=== PATIENT | female | born 1985 | race Caucasian/White ===

== ENCOUNTER 2017-11-02 19:16 | Emergency (ER) | payer OTHER ==
[2017-11-02] MEDS ORDERED: Lactated Ringers 1,000 ML IV ONE (19:20)
--- NOTE | 2017-11-02 19:22 | EDM.PDOC ---
ED HPI GENERAL MEDICAL PROBLEM - General Chief Complaint: Abdominal Pain Stated Complaint: STOMACH PAIN/NAUSEA/DIZZY Time Seen by Provider: 11/02/17 19:21 Source of Information: Reports: Patient - History of Present Illness INITIAL COMMENTS - FREE TEXT/NARRATIVE: HISTORY AND PHYSICAL: History of present illness: [Patient presents with right lower quadrant pain and anorexia and nausea since 8 AM this morning rates pain 8 out of 10 nonradiating no fever chills sweats Denies chronic illness or disease History of tubal ligation ] Review of systems: As per history of present illness and below otherwise all systems reviewed and negative. Past medical history: As per history of present illness and as reviewed below otherwise noncontributory. Surgical history: As per history of present illness and as reviewed below otherwise noncontributory. Social history: No reported history of drug or alcohol abuse. Family history: As per history of present illness and as reviewed below otherwise noncontributory. Physical exam: HEENT: Atraumatic, normocephalic, pupils reactive, negative for conjunctival pallor or scleral icterus, mucous membranes moist, throat clear, neck supple, nontender, trachea midline. Lungs: Clear to auscultation, breath sounds equal bilaterally, chest nontender. Heart: S1S2, regular, negative for clicks, rubs, or JVD. Abdomen: Soft, nondistended, tender with guarding in the right lower quadrant no rebound Negative for masses or hepatosplenomegaly. Negative for costovertebral tenderness. Pelvis: Stable nontender. Genitourinary: Deferred. Rectal: Deferred. Extremities: Atraumatic, negative for cords or calf pain. Neurovascular unremarkable. Neuro: Awake, alert, oriented. Cranial nerves II through XII unremarkable. Cerebellum unremarkable. Motor and sensory unremarkable throughout. Exam nonfocal. Diagnostics: [CBC CMP amylase lipase troponin UA HCG] Therapeutics: [LR 1 L bolus Toradol 30 mg IV Zofran 8 mg IV 1 g Rocephin IM morphine Zosyn 3.375 g IV Patient transferred to [facility], I did speak with Dr. Shah [facility] to further evaluate mass lesion/treat ] Impression: Appendicitis 7.4 x 7.4 cm mass austere aspect of heart and diaphragm Intermediate splenic lesions noted by radiology 1.6 cm lytic lesion involving left iliac bone superiorly [Abdominal pain] Definitive disposition and diagnosis as appropriate pending reevaluation and review of above. abdominal Pain Score (Numeric/FACES): 10 - Related Data Allergies Allergy/AdvReac Type Severity Reaction Status Date / Time No Known Allergies Allergy Verified 11/02/17 19:28 Home Meds: Home Meds . [No Known Home Meds] 11/02/17 [History] ED ROS GENERAL - Review of Systems Review Of Systems: ROS reveals no pertinent complaints other than HPI. ED EXAM, GENERAL - Physical Exam Exam: See Below Course - Vital Signs Last Recorded V/S: Last Vital Signs Temp 97.8 F 11/02/17 19:23 Pulse 77 11/02/17 19:23 Resp 18 11/02/17 19:23 BP 145/83 H 11/02/17 19:23 Pulse Ox 97 11/02/17 19:23 - Orders/Labs/Meds Orders: Active Orders 24 hr Category Date Time Status Abdomen Pelvis w Cont [CT] Stat Exams 11/02/17 20:06 Taken Piperacillin/Tazobactam [Piperacil-Tazobact] 3.375 gm Med 11/02/17 21:30 Ordered Sodium Chloride 0.9% [Normal Saline] 50 ml IV ONETIME cefTRIAXone [Rocephin in Dextrose,Iso-Osm 1 GM/50 ML] 1 Med 11/02/17 21:19 Ordered gm Premix Bag 1 bag IV ONETIME Medication Orders Ceftriaxone Sodium/Dextrose 1 (gm/ Premix) 50 mls @ 100 mls/hr IV ONETIME ONE Stop: 11/02/17 21:48 Piperacillin Sod/Tazobactam (Sod 3.375 gm/ Sodium Chloride) 50 mls @ 100 mls/ hr IV ONETIME ONE Stop: 11/02/17 21:59 Labs: Laboratory Tests 11/02/17 11/02/17 11/02/17 Range/Units 19:25 19:25 19:32 WBC 22.78 H (4.0-11.0) K/uL RBC 4.62 (4.30-5.90) M/uL Hgb 12.7 (12.0-16.0) g/dL Hct 37.4 (36.0-46.0) % MCV 81.0 (80.0-98.0) fL MCH 27.5 (27.0-32.0) pg MCHC 34.0 (31.0-37.0) g/dL RDW Std Deviation 41.6 (28.0-62.0) fl RDW Coeff of Shabbir 14 (11.0-15.0) % Plt Count 208 (150-400) K/uL MPV 11.00 (7.40-12.00) fL Neut % (Auto) 87.6 H (48.0-80.0) % Lymph % (Auto) 6.3 L (16.0-40.0) % [place] % (Auto) 6.0 (0.0-15.0) % Eos % (Auto) 0.0 (0.0-7.0) % Baso % (Auto) 0.1 (0.0-1.5) % Neut # (Auto) 20.0 H (1.4-5.7) K/uL Lymph # (Auto) 1.4 (0.6-2.4) K/uL [place] # (Auto) 1.4 H (0.0-0.8) K/uL Eos # (Auto) 0.0 (0.0-0.7) K/uL Baso # (Auto) 0.0 (0.0-0.1) K/uL Nucleated RBC % 0.0 /100WBC Nucleated RBCs # 0 K/uL Sodium (136-145) mmol/L Potassium (3.5-5.1) mmol/L Chloride (98-107) mmol/L Carbon Dioxide (21.0-32.0) mmol/L BUN (7.0-18.0) mg/dL Creatinine (0.6-1.0) mg/dL Est Cr Clr Drug Dosing mL/min Estimated GFR (MDRD) ml/min Glucose (74-106) mg/dL Calcium (8.5-10.1) mg/dL Total Bilirubin (0.2-1.0) mg/dL AST (15-37) IU/L ALT (14-63) IU/L Alkaline Phosphatase (46-116) U/L Troponin I (0.000-0.056) ng/mL Total Protein (6.4-8.2) g/dL Albumin (3.4-5.0) g/dL Globulin (2.0-3.5) g/dL Albumin/Globulin Ratio (1.3-2.8) Amylase (25-115) U/L Lipase (73-393) U/L Urine Color YELLOW Urine Appearance CLEAR Urine pH 5.5 (5.0-8.0) Ur Specific [place] <= 1.005 (1.001-1.035) Urine Protein NEGATIVE (NEGATIVE) mg/dL Urine Glucose (UA) NEGATIVE (NEGATIVE) mg/dL Urine Ketones NEGATIVE (NEGATIVE) mg/dL Urine Occult Blood TRACE-LYSED (NEGATIVE) Urine Nitrite NEGATIVE (NEGATIVE) Urine Bilirubin NEGATIVE (NEGATIVE) Urine Urobilinogen 0.2 (<2.0) EU/dL Ur Leukocyte Esterase NEGATIVE (NEGATIVE) Urine RBC 0-1 (0-2/HPF) Urine WBC 0-2 (0-5/HPF) Ur Epithelial Cells RARE (NONE-FEW) Urine Bacteria RARE (NEGATIVE) Urine HCG, Qual NEGATIVE (NEGATIVE) 11/02/17 Range/Units 19:32 WBC (4.0-11.0) K/uL RBC (4.30-5.90) M/uL Hgb (12.0-16.0) g/dL Hct (36.0-46.0) % MCV (80.0-98.0) fL MCH (27.0-32.0) pg MCHC (31.0-37.0) g/dL RDW Std Deviation (28.0-62.0) fl RDW Coeff of Shabbir (11.0-15.0) % Plt Count (150-400) K/uL MPV (7.40-12.00) fL Neut % (Auto) (48.0-80.0) % Lymph % (Auto) (16.0-40.0) % [place] % (Auto) (0.0-15.0) % Eos % (Auto) (0.0-7.0) % Baso % (Auto) (0.0-1.5) % Neut # (Auto) (1.4-5.7) K/uL Lymph # (Auto) (0.6-2.4) K/uL [place] # (Auto) (0.0-0.8) K/uL Eos # (Auto) (0.0-0.7) K/uL Baso # (Auto) (0.0-0.1) K/uL Nucleated RBC % /100WBC Nucleated RBCs # K/uL Sodium 132 L (136-145) mmol/L Potassium 3.6 (3.5-5.1) mmol/L Chloride 100 (98-107) mmol/L Carbon Dioxide 22.1 (21.0-32.0) mmol/L BUN 9 (7.0-18.0) mg/dL Creatinine 0.8 (0.6-1.0) mg/dL Est Cr Clr Drug Dosing 98.18 mL/min Estimated GFR (MDRD) > 60.0 ml/min Glucose 106 (74-106) mg/dL Calcium 8.6 (8.5-10.1) mg/dL Total Bilirubin 1.8 H (0.2-1.0) mg/dL AST 13 L (15-37) IU/L ALT 15 (14-63) IU/L Alkaline Phosphatase 65 (46-116) U/L Troponin I < 0.050 (0.000-0.056) ng/mL Total Protein 7.5 (6.4-8.2) g/dL Albumin 3.7 (3.4-5.0) g/dL Globulin 3.8 H (2.0-3.5) g/dL Albumin/Globulin Ratio 1.0 L (1.3-2.8) Amylase 33 (25-115) U/L Lipase 53 L (73-393) U/L Urine Color Urine Appearance Urine pH (5.0-8.0) Ur Specific [place] (1.001-1.035) Urine Protein (NEGATIVE) mg/dL Urine Glucose (UA) (NEGATIVE) mg/dL Urine Ketones (NEGATIVE) mg/dL Urine Occult Blood (NEGATIVE) Urine Nitrite (NEGATIVE) Urine Bilirubin (NEGATIVE) Urine Urobilinogen (<2.0) EU/dL Ur Leukocyte Esterase (NEGATIVE) Urine RBC (0-2/HPF) Urine WBC (0-5/HPF) Ur Epithelial Cells (NONE-FEW) Urine Bacteria (NEGATIVE) Urine HCG, Qual (NEGATIVE) Meds: Medications Generic Name Dose Route Start Last Admin Trade Name Freq PRN Reason Stop Dose Admin Ceftriaxone Sodium/Dextrose 1 50 mls @ 100 mls/hr 11/02/17 21:19 gm/ Premix IV 11/02/17 21:48 ONETIME ONE Piperacillin Sod/Tazobactam 50 mls @ 100 mls/hr 11/02/17 21:30 Sod 3.375 gm/ Sodium Chloride IV 11/02/17 21:59 ONETIME ONE Discontinued Medications Generic Name Dose Route Start Last Admin Trade Name Alexis PRN Reason Stop Dose Admin Hydromorphone HCl 0.5 mg 11/02/17 20:15 Dilaudid IVPUSH ONETIME PRN Abdominal Pain Lactated Ringer's 1,000 mls @ 999 mls/hr 11/02/17 19:20 11/02/17 19:37 Ringers, Lactated IV 11/02/17 20:20 999 mls/hr .BOLUS ONE Administration Ketorolac Tromethamine 30 mg 11/02/17 19:30 11/02/17 19:43 Toradol IVPUSH 11/02/17 19:31 30 mg ONETIME ONE Administration Morphine Sulfate 2 mg 11/02/17 21:12 Morphine IVPUSH 11/02/17 21:13 ONETIME ONE Ondansetron HCl 8 mg 11/02/17 19:31 11/02/17 19:43 Zofran IVPUSH 11/02/17 19:32 8 mg ONETIME ONE Administration Departure - Departure Time of Disposition: 21:38 Disposition: DC/Tfer to Other 70 Condition: Poor Clinical Impression: Appendicitis, Mass in chest - Discharge Information Forms: ED Department Discharge - My Orders Last 24 Hours: My Active Orders 11/02/17 20:06 Abdomen Pelvis w Cont [CT] Stat 11/02/17 21:19 cefTRIAXone [Rocephin in Dextrose,Iso-Osm 1 GM/50 ML] 1 gm Premix Bag 1 bag IV ONETIME 11/02/17 21:30 Piperacillin/Tazobactam [Piperacil-Tazobact] 3.375 gm Sodium Chloride 0.9% [ Normal Saline] 50 ml IV ONETIME - Assessment/Plan Last 24 Hours: My Active Orders 11/02/17 20:06 Abdomen Pelvis w Cont [CT] Stat 11/02/17 21:19 cefTRIAXone [Rocephin in Dextrose,Iso-Osm 1 GM/50 ML] 1 gm Premix Bag 1 bag IV ONETIME 11/02/17 21:30 Piperacillin/Tazobactam [Piperacil-Tazobact] 3.375 gm Sodium Chloride 0.9% [ Normal Saline] 50 ml IV ONETIME
[2017-11-02] MEDS ORDERED: Ketorolac 30 MG/ML SDV IVPUSH ONE (19:30)
[2017-11-02] MEDS ORDERED: Ondansetron 4 MG/2 ML SDV IVPUSH ONE (19:31)
[2017-11-02 20:05] LABS: CHLORIDE,CL 100 mmol/L (98-107); SODIUM,NA 132 mmol/L (136-145)
[2017-11-02] MEDS ORDERED: HYDROmorphone 2 MG/ML SDV IVPUSH PRN (20:15)
[2017-11-02] MEDS ORDERED: Morphine 2 MG/ML Syringe IVPUSH ONE (21:12)
[2017-11-02] MEDS ORDERED: cefTRIAXone 1 GM in Premix Bag 1 BAG IV ONE (21:19)
[2017-11-02] MEDS ORDERED: Piperacillin/Tazobactam 3.375 GM in Sodium Chloride 0.9% 50 ML IV ONE (21:30)
[2017-11-02] MEDS ORDERED: diphenhydrAMINE 50 MG/ML SDV IVPUSH ONE (22:12)
[2017-11-02] MEDS ORDERED: diphenhydrAMINE 50 MG/ML SDV ONE (22:13)
--- NOTE | 2017-11-03 17:09 | CT ---
EXAM DATE: 11/02/17 PATIENT'S AGE: 32 Patient: JAZMIN ADAIR Facility: [place], [place] Site . Site : 1985 Study: CT Abdomen/Pelvis [id number]/18/2018 8:53:47 PM Ordering Physician: Brandi Sequeira Final Report: HISTORY: Flank pain. TECHNIQUE: Intravenous contrast enhanced CT of the abdomen and pelvis. 100 mL of Isovue- 370 intravenous contrast administered. COMPARISON: No prior. FINDINGS: There is no focal liver parenchymal abnormality. No biliary ductal dilatation. Gallbladder does not appear overly distended. There are multiple low-density indeterminate splenic lesions. The adrenal gland on the right is normal. There is mild thickening of the posterior limb of the left adrenal gland. No focal pancreatic abnormality or acute peripancreatic inflammatory change. Symmetric nephrograms. No hydronephrosis. Sub cm low-density lesion at the inferior pole left kidney is too small to characterize though may represent a small cyst. There is no ureteral calculus. Urinary bladder is not optimally evaluated by CT but appears grossly unremarkable. - The appendix is dilated to approximately 10 mm. There is haziness of the periappendiceal fat along with a trace amount of periappendiceal fluid. These findings are suspicious for acute appendicitis. There is no well-defined periappendiceal fluid collection. No diverticulitis. - Small amount of pelvic free fluid within the cul-de-sac. Probable small dominant follicle or cyst right ovary. - No abdominal aortic aneurysm. The mesenteric arterial and renal arterial vasculature appears patent. Small nonenlarged by imaging criteria retroperitoneal lymph nodes. 1.6 cm lytic lesion involving the left iliac bone superiorly on image #94 of series 201. No other bony lucent lesions. - There is an approximately 7.4 x 7.4 cm mass abutting the posterior aspect of the heart. This is seen on image #17 of series 201. Differential considerations include lymphoma, metastatic disease or primary soft tissue tumor. There are prominent lymph nodes within the fat adjacent to the right heart. Minor atelectasis within the lung bases. IMPRESSION: 1. Dilated appendix with surrounding inflammatory changes compatible with acute appendicitis. No free air or well-defined fluid collection. 2. Soft tissue mass measuring 7.4 x 7.4 cm in size abutting the posterior aspect of the heart and diaphragm. Differential considerations include lymphoma , metastatic disease versus primary soft tissue neoplasm. There are also prominent lymph nodes in the fat adjacent to the right heart. 3. Indeterminate splenic lesions for which lymphoma or metastases may be considered. 4. 1.6 cm lytic lesion involving the left iliac bone superiorly. No other bony lucent lesions. 5. Findings were discussed with Dr. Paz on 11/02/2017 at 21:09 hours. Dictated by Scott Lopez MD @ 11/02/2017 9:13:48 PM Dictated by: Scott Lopez MD @ 11/02/2017 21:13:58 (Electronic Signature) Report Signed by Proxy. CARISSA
== END 2017-11-02 22:31 | disposition other institution (70) ==
LOC: MW.ED 19:16
DX: K37 Unspecified appendicitis (principal); R22.2 Localized swelling, mass and lump, trunk
CPT/HCPCS: 36415; 74177; 80053; 81001; 81025; 82150; 83690; 84484; 85025; 96361; 96365; 96367; 96375; 99285; J0696; J1200; J1885; J2270; J2405; J2543; J7050; J7120; 99284

== ENCOUNTER 2018-02-26 11:48 | Emergency (ER) | payer OTHER ==
--- NOTE | 2018-02-26 12:22 | EDM.PDOC ---
<Luis Harrison E - Last Filed: 02/26/18 13:46> ED HPI GENERAL MEDICAL PROBLEM - General Chief Complaint: Abdominal Pain Stated Complaint: ABD PAIN Time Seen by Provider: 02/26/18 12:20 Source of Information: Reports: Patient History Limitations: Reports: No Limitations - History of Present Illness INITIAL COMMENTS - FREE TEXT/NARRATIVE: HISTORY AND PHYSICAL: History of present illness: Patient is a 32-year-old female who presents to the emergency room today with complaints of right upper quadrant pain and nausea. She states that depending on the time it does radiate into her posterior mid back. She is concerned that this is her gallbladder. Reports that she has had similar pain on and off over the past several years but has never been evaluated for this. She denies any fever, chills, chest pain, shortness of breath or cough. Denies any vomiting, diarrhea, constipation or dysuria. Review of systems: As per history of present illness and below otherwise all systems reviewed and negative. Past medical history: As per history of present illness and as reviewed below otherwise noncontributory. Surgical history: As per history of present illness and as reviewed below otherwise noncontributory. Social history: No reported history of drug or alcohol abuse. Family history: As per history of present illness and as reviewed below otherwise noncontributory. Physical exam: General: Well-developed and well-nourished 32-year-old female. Alert and oriented. Nontoxic appearing and in no acute distress. HEENT: Atraumatic, normocephalic, pupils equal and reactive bilaterally, negative for conjunctival pallor or scleral icterus, mucous membranes moist, throat clear, neck supple, nontender, trachea midline. No drooling or trismus noted. No meningeal signs Lungs: Clear to auscultation, breath sounds equal bilaterally, chest nontender. Heart: S1S2, regular rate and rhythm without overt murmur Abdomen: Soft, nondistended, nontender. Negative for masses or hepatosplenomegaly. Negative for costovertebral tenderness. Pelvis: Stable nontender. Genitourinary: Deferred. Rectal: Deferred. Skin: Intact, warm, dry. No lesions or rashes noted. Extremities: Atraumatic, negative for cords or calf pain. Neurovascular unremarkable. Neuro: Awake, alert, oriented. Cranial nerves II through XII unremarkable. Cerebellum unremarkable. Motor and sensory unremarkable throughout. Exam nonfocal. Notes: 11/02/17: A she did have a CT of the abdomen and pelvis with contrast which showed a dilated appendix with surrounding inflammatory changes. There was a soft tissue mass measuring 7.47.4 cm in size posterior aspect of the heart and diaphragm. She was transferred to [facility] [place] in [place]. These masses were biopsied and found to be benign. Has not had any problems since that time. Offered IV fluids and nausea medication; declined. Lab work is unremarkable. Ultrasound shows no evidence Diagnostics: CBC, CMP, Amylase, Lipase, UA, Limited Abdominal Ultrasound Therapeutics: Declined Impression: Abdominal Pain Plan: 1. [place] low-fat diet for the next 24-72 hours. Increase your oral fluids to prevent dehydration. 2. You may use the tramadol and Zofran as prescribed. Tramadol may cause drowsiness so do not take it will driving her needing to be functioning outside of the house. 3. Please follow-up with your primary care provider or the general surgeon in the next week. Return to the ED as needed and as discussed. Definitive disposition and diagnosis as appropriate pending reevaluation and review of above. Right Upper Abdominal Pain Score (Numeric/FACES): 5 - Related Data Allergies Allergy/AdvReac Type Severity Reaction Status Date / Time No Known Allergies Allergy Verified 02/26/18 12:18 Home Meds: Home Meds . [No Known Home Meds] 11/02/17 [History] Past Medical History - Past Surgical History Female Surgical History: Reports: Section Social & Family History - Family History Family Medical History: Noncontributory - Caffeine Use Caffeine Use: Reports: Coffee, Energy Drinks, Soda, Tea Course - Vital Signs Last Recorded V/S: Last Vital Signs Temp 36.8 C 02/26/18 12:18 Pulse 83 02/26/18 13:55 Resp 18 02/26/18 13:55 BP 133/87 02/26/18 13:55 Pulse Ox 99 02/26/18 13:55 - Orders/Labs/Meds Orders: Active Orders 24 hr Category Date Time Status HCG QUALITATIVE,URINE [URCHEM] Stat Lab 02/26/18 11:52 Ordered UA W/MICROSCOPIC [URIN] Stat Lab 02/26/18 11:52 Ordered Labs: Laboratory Tests 02/26/18 02/26/18 02/26/18 Range/Units 11:52 11:52 12:12 WBC 8.18 (4.0-11.0) K/uL RBC 4.81 (4.30-5.90) M/uL Hgb 12.4 (12.0-16.0) g/dL Hct 37.9 (36.0-46.0) % MCV 78.8 L (80.0-98.0) fL MCH 25.8 L (27.0-32.0) pg MCHC 32.7 (31.0-37.0) g/dL RDW Std Deviation 42.5 (28.0-62.0) fl RDW Coeff of Shabbir 15 (11.0-15.0) % Plt Count 203 (150-400) K/uL MPV 11.50 (7.40-12.00) fL Neut % (Auto) 67.9 (48.0-80.0) % Lymph % (Auto) 22.7 (16.0-40.0) % [place] % (Auto) 5.0 (0.0-15.0) % Eos % (Auto) 4.2 (0.0-7.0) % Baso % (Auto) 0.2 (0.0-1.5) % Neut # (Auto) 5.6 (1.4-5.7) K/uL Lymph # (Auto) 1.9 (0.6-2.4) K/uL [place] # (Auto) 0.4 (0.0-0.8) K/uL Eos # (Auto) 0.3 (0.0-0.7) K/uL Baso # (Auto) 0.0 (0.0-0.1) K/uL Nucleated RBC % 0.0 /100WBC Nucleated RBCs # 0 K/uL Sodium (136-145) mmol/L Potassium (3.5-5.1) mmol/L Chloride (98-107) mmol/L Carbon Dioxide (21.0-32.0) mmol/L BUN (7.0-18.0) mg/dL Creatinine (0.6-1.0) mg/dL Est Cr Clr Drug Dosing mL/min Estimated GFR (MDRD) ml/min Glucose (74-106) mg/dL Calcium (8.5-10.1) mg/dL Total Bilirubin (0.2-1.0) mg/dL AST (15-37) IU/L ALT (14-63) IU/L Alkaline Phosphatase (46-116) U/L Total Protein (6.4-8.2) g/dL Albumin (3.4-5.0) g/dL Globulin (2.0-3.5) g/dL Albumin/Globulin Ratio (1.3-2.8) Amylase (25-115) U/L Lipase (73-393) U/L Urine Color YELLOW Urine Appearance CLEAR Urine pH 6.0 (5.0-8.0) Ur Specific [place] 1.020 (1.001-1.035) Urine Protein NEGATIVE (NEGATIVE) mg/dL Urine Glucose (UA) NEGATIVE (NEGATIVE) mg/dL Urine Ketones NEGATIVE (NEGATIVE) mg/dL Urine Occult Blood TRACE-INTACT (NEGATIVE) Urine Nitrite NEGATIVE (NEGATIVE) Urine Bilirubin NEGATIVE (NEGATIVE) Urine Urobilinogen 0.2 (<2.0) EU/dL Ur Leukocyte Esterase NEGATIVE (NEGATIVE) Urine RBC 0-1 (0-2/HPF) Urine WBC 0-1 (0-5/HPF) Ur Epithelial Cells RARE (NONE-FEW) Urine Bacteria RARE (NEGATIVE) Urine HCG, Qual NEGATIVE (NEGATIVE) 02/26/18 02/26/18 Range/Units 12:12 12:12 WBC (4.0-11.0) K/uL RBC (4.30-5.90) M/uL Hgb (12.0-16.0) g/dL Hct (36.0-46.0) % MCV (80.0-98.0) fL MCH (27.0-32.0) pg MCHC (31.0-37.0) g/dL RDW Std Deviation (28.0-62.0) fl RDW Coeff of Shabbir (11.0-15.0) % Plt Count (150-400) K/uL MPV (7.40-12.00) fL Neut % (Auto) (48.0-80.0) % Lymph % (Auto) (16.0-40.0) % [place] % (Auto) (0.0-15.0) % Eos % (Auto) (0.0-7.0) % Baso % (Auto) (0.0-1.5) % Neut # (Auto) (1.4-5.7) K/uL Lymph # (Auto) (0.6-2.4) K/uL [place] # (Auto) (0.0-0.8) K/uL Eos # (Auto) (0.0-0.7) K/uL Baso # (Auto) (0.0-0.1) K/uL Nucleated RBC % /100WBC Nucleated RBCs # K/uL Sodium 138 (136-145) mmol/L Potassium 3.6 (3.5-5.1) mmol/L Chloride 102 (98-107) mmol/L Carbon Dioxide 28.4 (21.0-32.0) mmol/L BUN 13 (7.0-18.0) mg/dL Creatinine 0.9 (0.6-1.0) mg/dL Est Cr Clr Drug Dosing 84.01 mL/min Estimated GFR (MDRD) > 60.0 ml/min Glucose 110 H (74-106) mg/dL Calcium 8.9 (8.5-10.1) mg/dL Total Bilirubin 0.6 (0.2-1.0) mg/dL AST 14 L (15-37) IU/L ALT 19 (14-63) IU/L Alkaline Phosphatase 78 (46-116) U/L Total Protein 7.5 (6.4-8.2) g/dL Albumin 3.5 (3.4-5.0) g/dL Globulin 4.0 H (2.0-3.5) g/dL Albumin/Globulin Ratio 0.9 L (1.3-2.8) Amylase 38 (25-115) U/L Lipase 101 (73-393) U/L Urine Color Urine Appearance Urine pH (5.0-8.0) Ur Specific [place] (1.001-1.035) Urine Protein (NEGATIVE) mg/dL Urine Glucose (UA) (NEGATIVE) mg/dL Urine Ketones (NEGATIVE) mg/dL Urine Occult Blood (NEGATIVE) Urine Nitrite (NEGATIVE) Urine Bilirubin (NEGATIVE) Urine Urobilinogen (<2.0) EU/dL Ur Leukocyte Esterase (NEGATIVE) Urine RBC (0-2/HPF) Urine WBC (0-5/HPF) Ur Epithelial Cells (NONE-FEW) Urine Bacteria (NEGATIVE) Urine HCG, Qual (NEGATIVE) Departure - Departure Time of Disposition: 13:45 Disposition: Home, Self-Care 01 Clinical Impression: Abdominal pain Qualifiers: Abdominal location: right upper quadrant Qualified Code(s): R10.11 - Right upper quadrant pain - Discharge Information Instructions: Abdominal Pain, Adult, [id number] Referrals: PCP,None [Primary Care Provider] - Forms: ED Department Discharge Additional Instructions: The following information is given to patients seen in the emergency department who are being discharged to home. This information is to outline your options for follow-up care. We provide all patients seen in our emergency department with a follow-up referral. The need for follow-up, as well as the timing and circumstances, are variable depending upon the specifics of your emergency department visit. If you don't have a primary care physician on staff, we will provide you with a referral. We always advise you to contact your personal physician following an emergency department visit to inform them of the circumstance of the visit and for follow-up with them and/or the need for any referrals to a consulting specialist. The emergency department will also refer you to a specialist when appropriate. This referral assures that you have the opportunity for follow-up care with a specialist. All of these measure are taken in an effort to provide you with optimal care, which includes your follow-up. Under all circumstances we always encourage you to contact your private physician who remains a resource for coordinating your care. When calling for follow-up care, please make the office aware that this follow-up is from your recent emergency room visit. If for any reason you are refused follow-up, please contact the [facility] Emergency Department at and asked to speak to the emergency department charge nurse. [facility] [address] [place] [id number] [facility] Specialty Care - General Surgery Professional Building [address] [place] [address], [address] [place] [address] 1. [place] low-fat diet for the next 24-72 hours. Increase your oral fluids to prevent dehydration. 2. You may use the tramadol and Zofran as prescribed. Tramadol may cause drowsiness so do not take it will driving her needing to be functioning outside of the house. 3. Please follow-up with your primary care provider or the general surgeon in the next week. Return to the ED as needed and as discussed. <Sduha Rocha - Last Filed: 02/26/18 15:12> ED ROS GENERAL - Review of Systems Review Of Systems: ROS reveals no pertinent complaints other than HPI. ED EXAM, GI/ABD - Physical Exam Exam: See Below (See dictation)
[2018-02-26 12:56] LABS: CHLORIDE,CL 102 mmol/L (98-107); SODIUM,NA 138 mmol/L (136-145)
--- NOTE | 2018-02-26 13:06 | US ---
EXAMINATION: Right upper quadrant ultrasound HISTORY: Pain COMPARISON: CT dated 11/02/2017 TECHNIQUE: Grayscale, color Doppler, and spectral Doppler imaging obtained. FINDINGS: The visualized pancreas appears normal. The liver is normal in contour and echotexture with out a focal hepatic mass. The liver size is borderline and 17 cm. The gallbladder is contracted, othe rwise unremarkable. Common bile duct measures 3 mm. The right kidney measures 11.3 cm [id number] wi thout evidence of hydronephrosis. Sonographic Cerda sign is negative. IMPRESSION: Unremarkable right upper quadrant ultrasound.
== END 2018-02-26 13:55 | disposition home or self-care (01) ==
LOC: MW.ED 11:48
DX: R10.11 Right upper quadrant pain (principal)
CPT/HCPCS: 36415; 76705; 76705-26; 80053; 81001; 81025; 82150; 83690; 85025; 99283; 99284-25

== ENCOUNTER 2019-10-12 06:45 | Day surgery (SDC) | payer BC, OTHER ==
[2019-10-12] MEDS ORDERED: Lactated Ringers 1,000 ML IV SCH ×2 (07:00→07:30)
[2019-10-12] MEDS ORDERED: Lidocaine 2% 5 ML SDV ONE (07:02)
[2019-10-12] MEDS ORDERED: Midazolam 1 MG/ML 2 ML SDV ONE (07:02)
[2019-10-12] MEDS ORDERED: Ondansetron 4 MG/2 ML SDV ONE (07:02)
[2019-10-12] MEDS ORDERED: Propofol 200 MG/20 ML SDV ONE (07:02)
[2019-10-12] MEDS ORDERED: fentaNYL 250 MCG/5 ML SDV ONE (07:02)
[2019-10-12] MEDS ORDERED: Sodium Chloride 0.9% 10 ML Syringe FLUSH PRN (07:30)
[2019-10-12] MEDS ORDERED: Sodium Chloride 0.9% 10 ML SDV IV PRN (07:30)
[2019-10-12] MEDS ORDERED: Sodium Chloride 0.9% 2.5 ML Syringe FLUSH PRN (07:30)
[2019-10-12] MEDS ORDERED: Naloxone 0.4 MG/ML Syringe IVPUSH PRN (07:31)
[2019-10-12] MEDS ORDERED: EPINEPHrine 1:10,000 1 MG/10 ML Syringe IVPUSH PRN (07:31)
[2019-10-12] MEDS ORDERED: 50% Dextrose in Water 50 ML Syringe IVPUSH PRN (07:31)
[2019-10-12] MEDS ORDERED: Albuterol 0.083% 2.5 MG/3 ML Neb Soln NEB PRN (07:31)
[2019-10-12] MEDS ORDERED: Atropine 0.1 MG/ML 10 ML Syringe IVPUSH PRN ×2 (07:31)
--- NOTE | 2019-10-12 07:33 | PCM.PREANE ---
Preanesthetic Assessment - Anesthesia/Transfusion/Family Hx Family History of Anesthesia Reaction: No Transfusion History: No Prior Transfusion(s) - Review of Systems General: No Symptoms Pulmonary: No Symptoms Cardiovascular: No Symptoms Gastrointestinal: No Symptoms Neurological: No Symptoms Other: Reports: None - Physical Assessment NPO Status Date: 10/11/19 NPO Status Time: 22:00 Vital Signs: Last Vital Signs Temp 97.5 F 10/12/19 07:00 Pulse 77 10/12/19 07:00 Resp 16 10/12/19 07:00 BP 121/77 10/12/19 07:00 Pulse Ox 97 10/12/19 07:00 Height: 5 ft 6 in Weight: 89.811 kg ASA Class: 1 Mental Status: Alert & Oriented x3 Airway Class: Mallampati = 2 Dentition: Reports: Normal Dentition ROM/Head Extension: Full Lungs: Clear to Auscultation, Normal Respiratory Effort Cardiovascular: Regular Rate, Regular Rhythm - Lab Values: Laboratory Last Values WBC 8.34 K/uL (4.0-11.0) 10/12/19 07:10 RBC 4.78 M/uL (4.30-5.90) 10/12/19 07:10 Hgb 12.1 g/dL (12.0-16.0) 10/12/19 07:10 Hct 38.7 % (36.0-46.0) 10/12/19 07:10 MCV 81.0 fL (80.0-98.0) 10/12/19 07:10 MCH 25.3 pg (27.0-32.0) L 10/12/19 07:10 MCHC 31.3 g/dL (31.0-37.0) 10/12/19 07:10 RDW Std Deviation 41.1 fl (28.0-62.0) 10/12/19 07:10 RDW Coeff of Shabbir 14 % (11.0-15.0) 10/12/19 07:10 Plt Count 225 K/uL (150-400) 10/12/19 07:10 MPV 12.10 fL (7.40-12.00) H 10/12/19 07:10 Nucleated RBC % 0.0 /100WBC 10/12/19 07:10 Nucleated RBCs # 0 K/uL 10/12/19 07:10 - Allergies Allergies/Adverse Reactions: Allergies Allergy/AdvReac Type Severity Reaction Status Date / Time No Known Allergies Allergy Verified 10/07/19 09:09 - Blood Blood Available: No - Anesthesia Plan Pre-Op Medication Ordered: None - Acknowledgements Anesthesia Type Planned: General Anesthesia Pt an Appropriate Candidate for the Planned Anesthesia: Yes Alternatives and Risks of Anesthesia Discussed w Pt/Guardian: Yes Pt/Guardian Understands and Agrees with Anesthesia Plan: Yes Additional Comments: PLAN: ga/lma, prophylactic antiemetics PreAnesthesia Questionnaire HEENT History: Reports: None Cardiovascular History: Reports: None Respiratory History: Reports: None Gastrointestinal History: Reports: None Genitourinary History: Reports: None [employer]ICER History: Reports: Musculoskeletal History: Reports: None Neurological History: Reports: Migraines Psychiatric History: Reports: Anxiety Endocrine/Metabolic History: Reports: Obesity/BMI 30+ Hematologic History: Reports: None Immunologic History: Reports: None Oncologic (Cancer) History: Reports: None Dermatologic History: Reports: None - Infectious Disease History Infectious Disease History: Reports: None - Past Surgical History Head Surgeries/Procedures: Reports: None HEENT Surgical History: Reports: None Cardiovascular Surgical History: Reports: None Respiratory Surgical History: Reports: None GI Surgical History: Reports: Appendectomy Female Surgical History: Reports: Breast Biopsy, Section, Tubal Ligation Endocrine Surgical History: Reports: None Neurological Surgical History: Reports: None Musculoskeletal Surgical History: Reports: None Oncologic Surgical History: Reports: None Dermatological Surgical History: Reports: None - SUBSTANCE USE Smoking Status *Q: Former Smoker Tobacco Use Within Last Twelve Months: Cigarettes - HOME MEDS Home Medications: Home Meds Ibuprofen 1 tab PO TID PRN 10/07/19 [History] Phentermine HCl 1 tab PO DAILY 10/07/19 [History] - CURRENT (IN HOUSE) MEDS Current Meds: Current Medications Albuterol (Proventil Neb Soln) 2.5 mg NEB ONETIME PRN PRN Reason: Wheezing Atropine Sulfate (Atropine 0.1 Mg/Ml) 0.5 mg IVPUSH ASDIRECTED PRN PRN Reason: Hypo-perfusion Atropine Sulfate (Atropine 0.1 Mg/Ml) 1 mg IVPUSH ASDIRECTED PRN PRN Reason: Hypo-Perfusion Dextrose/Water (Dextrose 50% In Water) 50 ml IVPUSH ASDIRECTED PRN PRN Reason: Hypoglycemia Epinephrine HCl (Epinephrine 1:10,000) 1 mg IVPUSH ASDIRECTED PRN PRN Reason: ACLS Guidelines Fentanyl (Sublimaze) 50 - 100 mcg IVPUSH Q5M PRN PRN Reason: Pain Lactated Ringer's (Ringers, Lactated) 1,000 mls @ 100 mls/hr IV ASDIRECTED [facility] Last Admin: 10/12/19 07:00 Dose: 100 mls/hr Lactated Ringer's (Ringers, Lactated) 1,000 mls @ 125 mls/hr IV ASDIRECTED [facility] Naloxone HCl (Narcan) 0.1 mg IVPUSH ASDIRECTED PRN PRN Reason: Respiratory Depression Sodium Chloride (Saline Flush) 10 ml FLUSH ASDIRECTED PRN PRN Reason: Keep Vein Open Sodium Chloride (Saline Flush) 2.5 ml FLUSH ASDIRECTED PRN PRN Reason: Keep Vein Open Sodium Chloride (Normal Saline) 10 ml IV ASDIRECTED PRN PRN Reason: IV Use Discontinued Medications Fentanyl (Sublimaze) Confirm Administered Dose 250 mcg .ROUTE .STK-MED ONE Stop: 10/12/19 07:03 Lidocaine (Xylocaine-Mpf 2%) Confirm Administered Dose 5 ml .ROUTE .STK-MED ONE Stop: 10/12/19 07:03 Midazolam HCl (Versed 1 Mg/Ml) Confirm Administered Dose 2 mg .ROUTE .STK-MED ONE Stop: 10/12/19 07:03 Ondansetron HCl (Zofran) Confirm Administered Dose 4 mg .ROUTE .STK-MED ONE Stop: 10/12/19 07:03 Propofol (Diprivan 20 Ml) Confirm Administered Dose 200 mg .ROUTE .STK-MED ONE Stop: 10/12/19 07:03
[2019-10-12] MEDS ORDERED: diphenhydrAMINE 50 MG/ML SDV ONE (08:04)
[2019-10-12] MEDS ORDERED: Dexamethasone 4 MG/ML 5 ML MDV ONE (08:04)
[2019-10-12] MEDS ORDERED: Phenylephrine/Normal Saline 100 MCG/ML 10 ML Syringe ONE (08:05)
[2019-10-12] MEDS ORDERED: Ketorolac 30 MG/ML SDV ONE (08:27)
[2019-10-12] MEDS: fentaNYL 100 MCG/2 ML SDV IVPUSH PRN ×2 (10:16→10:25)
[2019-10-12] MEDS ORDERED: Ibuprofen 800 MG Tab PO PRN (10:22)
--- NOTE | 2019-10-12 10:28 | PCM.OPNOTE ---
- General Post-Op/Procedure Note Date of Surgery/Procedure: 10/12/19 Operative Procedure(s): Diagnostic hysteroscopy, myomectomy with myosure and resectoscope, dilation & curettage Findings: Normal-sized anteverted uterus that sounded to 10cm. 2.5cm submucosal fibroid. Normal tubal ostia. Normal endometrium. Pre Op Diagnosis: Excessive and frequent menstruation with regular cycle. Dysmenorrhea. Abnormal ultrasound of uterus Post-Op Diagnosis: Excessive and frequent menstruation with regular cycle. Dysmenorrhea. Submucosal leiomyoma of uterus Anesthesia Technique: [facility] [place] Primary Surgeon: Caroline Panda Felt Cutter: Ratna Rodney Pathology: Fibroid, endometrial curettage Fluid Replacement, Intraop: 1,400 EBL in mLs: 25 Complications: None Condition: Good Free Text/Narrative:: Myosure deficit 2365cc NS Resectoscope deficit 1640cc NS CMP pending in PACU
[2019-10-12 10:48] LABS: BLOOD UREA NITROGEN,BUN 12 mg/dL (7.0-18.0); CARBON DIOXIDE,CO2 28.1 mmol/L (21.0-32.0); CHLORIDE,CL 107 mmol/L (98-107); GLUCOSE RANDOM 123 mg/dL (74-106); POTASSIUM,K 5.2 mmol/L (3.5-5.1); SODIUM,NA 142 mmol/L (136-145)
--- NOTE | 2019-10-12 12:32 | PCM.POSTAN ---
POST ANESTHESIA ASSESSMENT - MENTAL STATUS Mental Status: Alert, Oriented - VITAL SIGNS Vital Signs: Last Vital Signs Temp 97.2 F 10/12/19 11:20 Pulse 71 10/12/19 11:40 Resp 14 10/12/19 11:40 BP 110/60 10/12/19 11:40 Pulse Ox 98 10/12/19 11:40 - RESPIRATORY Respiratory Status: Respiratory Rate WNL, Airway Patent, O2 Saturation Stable - CARDIOVASCULAR CV Status: Pulse Rate WNL, Blood Pressure Stable - GASTROINTESTINAL GI Status: No Symptoms - POST OP HYDRATION Hydration Status: Adequate & Stable
--- NOTE | 2019-10-12 12:32 | PCM48HPAN ---
Post Anesthesia Note - EVALUATION WITHIN 48HRS OF ANESTHETIC Vital Signs in Normal Range: Yes Patient Participated in Evaluation: Yes Respiratory Function Stable: Yes Airway Patent: Yes Cardiovascular Function Stable: Yes Hydration Status Stable: Yes Pain Control Satisfactory: Yes Nausea and Vomiting Control Satisfactory: Yes Mental Status Recovered: Yes Vital Signs: Last Vital Signs Temp 97.2 F 10/12/19 11:20 Pulse 71 10/12/19 11:40 Resp 14 10/12/19 11:40 BP 110/60 10/12/19 11:40 Pulse Ox 98 10/12/19 11:40
--- NOTE | 2019-10-13 00:54 | OR ---
SURGEON: Caroline Panda MD DATE OF PROCEDURE: 10/12/2019 PREOPERATIVE DIAGNOSES: 1. Excessive and frequent menstruation with regular cycle. 2. Dysmenorrhea. 3. Abnormal ultrasound of uterus. POSTOPERATIVE DIAGNOSES: 1. Submucosal leiomyoma of uterus. PROCEDURE: Diagnostic hysteroscopy, hysteroscopic myomectomy with MyoSure and resectoscope, dilation and curettage. PRIMARY SURGEON: Caroline Panda MD LODE MINER BLASTING: Ratna Rodney M.D. ANESTHESIA: MAC. ESTIMATED BLOOD LOSS: 25 mL. FLUIDS: 1400 mL LR. URINE OUTPUT: Bladder drained prior to procedure. SPECIMENS: Fibroid and endometrial curettage. DISTENTION MEDIA DEFICIT: 2365 mL normal saline with MyoSure, 1640 mL normal saline with the resectoscope. FINDINGS: Exam under anesthesia revealed a normal-sized anteverted uterus with normal contour. The uterus sounded to 10 cm. Hysteroscopy showed 1 submucosal fibroid at the fundus measuring roughly 2.5 cm. Normal tubal ostia. Normal endometrium. DESCRIPTION OF PROCEDURE: The patient was taken to the operating room, where MAC was obtained without difficulty. She was placed in the dorsal lithotomy position with legs in Yellofin stirrups. An exam under anesthesia revealed a normal anteverted uterus. The patient was then prepared and draped in normal sterile fashion. A Graves speculum was inserted into the vagina. An Allis clamp was used to grasp the posterior lip of the cervix. The uterus was carefully sounded to 10 cm. Cervical os was sequentially dilated to accommodate the 5 mm hysteroscope using Hegar dilators. A 5 mm hysteroscope was introduced under direct visualization and the uterus was distended with normal saline. The aforementioned findings were noted. The decision was then made to proceed with MyoSure myomectomy. The cervix was then dilated to accommodate a 5 mm MyoSure hysteroscope. The MyoSure hysteroscope was then introduced under direct visualization and the uterus again distended with normal saline. Dr. Ratna Rodney was asked to come to the operating room for assistance with visualization and removal of the fibroid. The MyoSure was activated and a large portion of the fibroid was removed. The MyoSure was then removed and the cervix dilated to accommodate a 10 mm resectoscope/hysteroscope. The resectoscope was introduced under direct visualization and the uterus again distended with normal saline. The resectoscope was used to remove the remainder of the fibroid. At this time , the procedure was terminated due to the normal saline fluid deficit. The resectoscope was removed. The uterus was curetted in a clockwise fashion removing endometrial tissue and pieces of the fibroid. The Allis was removed from the cervix and good hemostasis was noted. The patient tolerated the procedure well. All instrument and sponge counts were correct. The patient was awakened and taken to recovery room in stable condition. Electrolytes were measured in the recovery room and were within normal limits. The patient was discharged home in stable condition. [id number] / MODL /[id number] MTDD
[2019-10-13] MEDS ORDERED: PHENTERMINE HCL PO SCH (09:00)
== END 2019-10-12 12:30 | disposition home or self-care (01) ==
LOC: MW.SDS 06:45
PROVIDERS: ATTEND Obstetrics & Gynecology
DX: D25.0 Submucous leiomyoma of uterus (principal); R93.5 Abnormal findings on diagnostic imaging of other abdominal regions, including retroperitoneum; F41.9 Anxiety disorder, unspecified; E66.9 Obesity, unspecified; Z87.891 Personal history of nicotine dependence; Z79.899 Other long term (current) drug therapy
CPT/HCPCS: 36415; 58563; 80053; 84703; 85027; 88305; A9270; J1100; J1200; J1885; J2001; J2250; J2370; J2405; J2704; J3010; J7120